=== PATIENT | male | born 1985 | race Caucasian/White ===

== ENCOUNTER 2017-07-03 09:54 | Inpatient (IN) | payer BC, MEDICAID, OTHER ==
[2017-07-03] MEDS ORDERED: LORazepam 2 MG/ML INJ IVP ONE ×3 (10:00→11:40)
--- NOTE | 2017-07-03 10:05 | CPEKG ---
Heart Rate: 147 RR Interval: 408 P-R Interval: 136 QRSD Interval: 76 QT Interval: 260 QTC Interval: 407 P Grayson: 87 QRS Grayson: 79 T Wave Grayson: -33 EKG Severity - ABNORMAL ECG - EKG Impression: SINUS TACHYCARDIA EKG Impression: NONSPECIFIC T ABNORMALITIES, INFERIOR LEADS Electronically Signed By: Sara Espitia 03-Jul-2017 16:25:10
[2017-07-03] MEDS ORDERED: NS 1,000 ML IV ONE ×3 (10:19→13:02)
[2017-07-03 10:22] LABS: % IMMATURE GRANULYOCYTES 0.4 % (0.0-1.1); ABSOLUTE IMMATURE GRANULOCYTES 0.04 10^3/uL (0.00-0.10); ADD DIFF? NO; ADD MORPH? NO; ADD SCAN? NO; ATYPICAL LYMPHOCYTE FLAG 20 (0-99); FRAGMENT RBC FLAG 0 (0-99); HEMATOCRIT 46.4 % (40.0-51.0); HEMOGLOBIN 15.9 g/dL (13.7-17.5); LEFT SHIFT FLG 0 (0-99); LIPEMIA HEMOLYSIS FLAG 90 (0-99); MEAN CELL HEMOGLOBIN 36.1 pg (27.9-34.1); MEAN CELL HEMOGLOBIN CONCENTR. 34.3 g/dL (32.4-36.7); MEAN CELL VOLUME 105.2 fL (81.5-99.8); MEAN PLATELET VOLUME 11.5 fL (8.7-11.7); PLATELET CLUMPS FLAG 20 (0-99); PLATELET COUNT 106 10^3/uL (150-400); RED BLOOD CELL COUNT 4.41 10^6/uL (4.40-6.38); RED CELL DISTRIBUTION WIDTH 11.8 % (11.5-15.2)
[2017-07-03 10:43] LABS: ANION GAP 35 mEq/L (8-16); CALCIUM 11.8 mg/dL (8.5-10.4); CARBON DIOXIDE 12 mEq/l (22-31); CHLORIDE 95 mEq/L (97-110); CREATININE 1.2 mg/dL (0.7-1.3); ETHANOL SERUM < 10 mg/dL (0-10); GLOMERULAR FILTRATION RATE > 60; GLUCOSE 143 mg/dL (70-100); POTASSIUM 3.2 mEq/L (3.5-5.2); SODIUM 142 mEq/L (134-144)
[2017-07-03] MEDS ORDERED: OLANZapine 10 MG TAB PO ONE ×2 (10:44→11:33)
[2017-07-03] MEDS ORDERED: OLANZapine DISINTEGR 10 MG TAB ONE (11:07)
[2017-07-03] MEDS ORDERED: POTASSIUM CL 20 MEQ TAB PO ONE (11:33)
[2017-07-03] MEDS ORDERED: OLANZapine DISINTEGR 10 MG TAB PO ONE (11:38)
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
[2017-07-03] MEDS ORDERED: MAGNESIUM OXIDE 400 MG TAB PO ONE (11:54)
[2017-07-03] MEDS ORDERED: ONDANSETRON 4 MG/2 ML VIAL IVP PRN (12:29)
[2017-07-03] MEDS ORDERED: ONDANSETRON DISINTEGRATING 4 MG TAB PO PRN (12:29)
[2017-07-03] MEDS ORDERED: ACETAMINOPHEN 325 MG TAB PO PRN (12:29)
[2017-07-03 13:00] LABS: ANION GAP 20 mEq/L (8-16); CALCIUM 9.8 mg/dL (8.5-10.4); CARBON DIOXIDE 19 mEq/l (22-31); CHLORIDE 103 mEq/L (97-110); CREATININE 0.8 mg/dL (0.7-1.3); GLOMERULAR FILTRATION RATE > 60; GLUCOSE 76 mg/dL (70-100); POTASSIUM 3.1 mEq/L (3.5-5.2); SODIUM 142 mEq/L (134-144)
[2017-07-03 13:24] LABS: COLOR RED; LEUKOCYTE ESTERASE,URINE NEGATIVE (NEGATIVE); NITRITE,URINE NEGATIVE (NEGATIVE)
[2017-07-03 13:26] LABS: HYALINE CASTS >182 /lpf (0-1); MUCUS 4+ /lpf (NONE-1+)
[2017-07-03] MEDS: DEXMEDETOMIDINE HCL 400 MCG in NS 100 ML IV SCH (13:42)
[2017-07-03] MEDS: NS 1,000 ML IV SCH ×2 (13:46→23:38)
[2017-07-03] MEDS: LORazepam 2 MG/ML INJ IVP PRN (13:52)
[2017-07-03 13:53] LABS: ALANINE AMINOTRANSFERASE 173 IU/L (21-72); ALBUMIN 5.8 g/dL (3.5-5.0); ALKALINE PHOSPHATASE 132 IU/L (38-126); ASPARTATE AMINOTRANSFERASE 334 IU/L (17-59); BILIRUBIN,TOTAL 5.4 mg/dL (0.1-1.4); BILIRUBIN-CONJUGATED 2.8 mg/dL (0.0-0.5); BILIRUBIN-UNCONJUGATED 2.6 mg/dL (0.0-1.1); SALICYLATE < 1.0 mg/dL (2.0-20.0); TOTAL PROTEIN 9.3 g/dL (6.3-8.2)
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
[2017-07-03] MEDS ORDERED: PROTOCOL POTASSIUM 1 DOSE MISC PRN (14:42)
[2017-07-03] MEDS ORDERED: PROTOCOL K PHOSPHATE 1 DOSE IV PRN (14:42)
[2017-07-03 18:36] LABS: POTASSIUM 3.5 mEq/L (3.5-5.2)
[2017-07-03 18:44] LABS: METHANOL NEGATIVE (NEGATIVE); PROPYLENE GLYCOL NOT DETECTED (NODETECT)
[2017-07-03] MEDS ORDERED: POTASSIUM CL 10 MEQ TAB PO ONE (22:44)
[2017-07-04] MEDS: LORazepam 2 MG/ML INJ IVP PRN ×3 (00:18→18:50)
[2017-07-04] MEDS ORDERED: D50W 25 GM/50 ML SYR IVP ONE (01:00)
[2017-07-04] MEDS: DEXMEDETOMIDINE HCL 400 MCG in NS 100 ML IV SCH (05:03)
[2017-07-04 05:29] LABS: % IMMATURE GRANULYOCYTES 0.2 % (0.0-1.1); ABSOLUTE IMMATURE GRANULOCYTES 0.01 10^3/uL (0.00-0.10); ADD DIFF? NO; ADD MORPH? NO; ADD SCAN? NO; ATYPICAL LYMPHOCYTE FLAG 20 (0-99); FRAGMENT RBC FLAG 0 (0-99); HEMOGLOBIN 10.5 g/dL (13.7-17.5); LEFT SHIFT FLG 0 (0-99); LIPEMIA HEMOLYSIS FLAG 80 (0-99); MEAN CELL HEMOGLOBIN 35.8 pg (27.9-34.1); MEAN CELL HEMOGLOBIN CONCENTR. 32.8 g/dL (32.4-36.7); MEAN CELL VOLUME 109.2 fL (81.5-99.8); MEAN PLATELET VOLUME 11.1 fL (8.7-11.7); PLATELET CLUMPS FLAG 0 (0-99); PLATELET COUNT 74 10^3/uL (150-400); RED BLOOD CELL COUNT 2.93 10^6/uL (4.40-6.38); RED CELL DISTRIBUTION WIDTH 11.9 % (11.5-15.2)
[2017-07-04 05:40] LABS: ANION GAP 12 mEq/L (8-16); CALCIUM 8.7 mg/dL (8.5-10.4); CARBON DIOXIDE 22 mEq/l (22-31); CHLORIDE 108 mEq/L (97-110); CREATININE 0.5 mg/dL (0.7-1.3); GLOMERULAR FILTRATION RATE > 60; GLUCOSE 92 mg/dL (70-100); MAGNESIUM 1.3 mg/dL (1.6-2.3); POTASSIUM 3.2 mEq/L (3.5-5.2); SODIUM 142 mEq/L (134-144)
[2017-07-04] MEDS ORDERED: PROTOCOL MAGNESIUM 1 DOSE IV PRN (06:11)
[2017-07-04] MEDS ORDERED: POTASSIUM CL 10 MEQ TAB PO ONE ×3 (06:40→20:01)
[2017-07-04] MEDS ORDERED: MAGNESIUM SULF 2 GM/WATER 50 ML IV ONE (06:46)
[2017-07-04] MEDS: ENOXAPARIN 40 MG/0.4 ML SYR SC SCH (07:50)
[2017-07-04 08:50] LABS: ALBUMIN 3.2 g/dL (3.5-5.0); BILIRUBIN,TOTAL 2.9 mg/dL (0.1-1.4); BILIRUBIN-CONJUGATED 1.4 mg/dL (0.0-0.5); BILIRUBIN-UNCONJUGATED 1.5 mg/dL (0.0-1.1); TOTAL PROTEIN 5.4 g/dL (6.3-8.2)
[2017-07-04] MEDS: THIAMINE HCL 500 MG in NS 100 ML IV SCH (09:06)
[2017-07-04] MEDS: NS 1,000 ML IV SCH (09:46)
--- NOTE | 2017-07-04 11:08 | HOSPPROG ---
Hospitalist Progress Note Assessment/Plan: # acute alcohol withdrawal- patient with heart rates in the 180s and tremulous at presentation actively hallucinating Markedly improved with Precedex overnight- now reports 5+ drinks per day Mentation markedly improved this morning - A&Ox3 - telemetry (personally reviewed and interpreted) sinus in the 80s Oxygen saturations 95% on room air - wean Precedex drip off - start scheduled Librium - Ativan p.r.n. # acute severe anion gap metabolic acidosis- suspected secondary to alcohol and starvation AG 35 at presentation-> 12 with fluids overnight- alcohols all negative at presentation - continue IV fluid resuscitation until p.o. normal - monitor daily # acute hallucination- baseline psychiatric history unclear patient appears to be clearing the treatment of alcohol - supportive care - treat alcohol withdrawal # hypokalemia, hypophosphatemia, hypomagnesemia- presumed secondary to poor p.o. intake - continue protocol repletion # macrocytosis - suspect 2/2 Etoh marrow suppression # thrombocytopenia - suspect 2/2 Etoh marrow suppression 106->74 - monitor daily # proph - lovenox # diet - regualr # dispo - > 2MN as requiring ongoing treatment of alcohol withdrawal I have discussed the case with Dr. Dickson- Will wean Precedex today and schedule Librium Subjective: Denies chest or abdominal pain Objective: Vital Signs Temp Pulse Resp BP Pulse Ox 37 C 64 12 81/52 L 98 07/04/17 08:00 07/04/17 09:41 07/04/17 09:41 07/04/17 09:41 07/04/17 09:41 Laboratory Results 07/04/17 05:12 07/04/17 05:12 07/03/17 07/04/17 07/05/17 05:59 05:59 05:59 Intake Total 5417.5 480 Output Total 825 Balance 4592.5 480 - Physical Exam Constitutional: appears nourished Eyes: anicteric sclera Ears, Nose, Mouth, Throat: dry mucous membranes Cardiovascular: regular rate and rhythym Respiratory: no respiratory distress, no rales or rhonchi Gastrointestinal: normoactive bowel sounds, soft, non-tender abdomen Genitourinary: no bladder fullness Skin: warm Musculoskeletal: No asymmetric calves Neurologic: AAOx3, other (Tremor) Psychiatric: interacting appropriately, poor insight, poor memory Lymph, Heme, Immunologic: no cervical LAD ICD10 Worksheet Patient Problems: Problems Problem Status Onset Encephalitis Acute
[2017-07-04 17:42] LABS: POTASSIUM 3.2 mEq/L (3.5-5.2)
[2017-07-04] MEDS ORDERED: LORazepam 2 MG/ML INJ IV ONE (20:30)
[2017-07-05] MEDS: DEXMEDETOMIDINE HCL 400 MCG in NS 100 ML IV SCH ×2 (00:05→06:36)
[2017-07-05 06:39] LABS: % IMMATURE GRANULYOCYTES 0.5 % (0.0-1.1); ABSOLUTE IMMATURE GRANULOCYTES 0.02 10^3/uL (0.00-0.10); ADD DIFF? NO; ADD MORPH? NO; ADD SCAN? NO; ATYPICAL LYMPHOCYTE FLAG 30 (0-99); FRAGMENT RBC FLAG 0 (0-99); HEMATOCRIT 33.3 % (40.0-51.0); HEMOGLOBIN 11.1 g/dL (13.7-17.5); LEFT SHIFT FLG 0 (0-99); LIPEMIA HEMOLYSIS FLAG 80 (0-99); MEAN CELL HEMOGLOBIN 36.6 pg (27.9-34.1); MEAN CELL HEMOGLOBIN CONCENTR. 33.3 g/dL (32.4-36.7); MEAN CELL VOLUME 109.9 fL (81.5-99.8); MEAN PLATELET VOLUME 11.3 fL (8.7-11.7); PLATELET CLUMPS FLAG 0 (0-99); PLATELET COUNT 105 10^3/uL (150-400); RED BLOOD CELL COUNT 3.03 10^6/uL (4.40-6.38)
[2017-07-05 06:51] LABS: ANION GAP 9 mEq/L (8-16); CALCIUM 8.9 mg/dL (8.5-10.4); CARBON DIOXIDE 24 mEq/l (22-31); CHLORIDE 110 mEq/L (97-110); CREATININE 0.5 mg/dL (0.7-1.3); GLOMERULAR FILTRATION RATE > 60; GLUCOSE 108 mg/dL (70-100); MAGNESIUM 1.5 mg/dL (1.6-2.3); POTASSIUM 3.6 mEq/L (3.5-5.2); SODIUM 143 mEq/L (134-144)
[2017-07-05] MEDS ORDERED: POTASSIUM CL 10 MEQ TAB PO ONE ×2 (08:42→22:31)
[2017-07-05] MEDS ORDERED: MAGNESIUM SULF 1 GM/DEXTROSE 100 ML IV ONE (08:42)
[2017-07-05] MEDS: LORazepam 1 MG TAB PO PRN (08:54)
[2017-07-05] MEDS: THIAMINE HCL 500 MG in NS 100 ML IV SCH (08:55)
[2017-07-05] MEDS: ENOXAPARIN 40 MG/0.4 ML SYR SC SCH (08:55)
[2017-07-05] MEDS: LORazepam 2 MG/ML INJ IVP PRN ×4 (11:06→19:16)
--- NOTE | 2017-07-05 14:36 | HOSPPROG ---
Hospitalist Progress Note Assessment/Plan: # acute alcohol withdrawal- patient with heart rates in the 180s and tremulous at presentation actively hallucinating Markedly improved with Precedex overnight- now reports 5+ drinks per day Mentation markedly improved this morning - A&Ox3 - telemetry (personally reviewed and interpreted) sinus in the 80s Oxygen saturations 95% on room air - wean Precedex drip off - start scheduled Librium - Ativan p.r.n. # acute severe anion gap metabolic acidosis- suspected secondary to alcohol and starvation AG 35 at presentation-> 12 with fluids overnight- alcohols all negative at presentation - continue IV fluid resuscitation until p.o. normal - monitor daily # acute hallucination- baseline psychiatric history unclear patient appears to be clearing the treatment of alcohol - supportive care - treat alcohol withdrawal # hypokalemia, hypophosphatemia, hypomagnesemia- presumed secondary to poor p.o. intake - continue protocol repletion # macrocytosis - suspect 2/2 Etoh marrow suppression # thrombocytopenia - suspect 2/2 Etoh marrow suppression 106->74 - monitor daily # proph - lovenox # diet - regualr # dispo - > 2MN as requiring ongoing treatment of alcohol withdrawal I have discussed the case with Dr. Dickson- Will wean Precedex today and schedule Librium Objective: Vital Signs Temp Pulse Resp BP Pulse Ox 36.8 C 69 14 121/74 H 97 07/05/17 08:27 07/05/17 12:14 07/05/17 12:14 07/05/17 12:14 07/05/17 12:14 Laboratory Results 07/05/17 06:28 07/05/17 06:28 07/04/17 07/05/17 07/06/17 05:59 05:59 05:59 Intake Total 5417.5 4670 1020 Output Total 825 350 Balance 4592.5 4320 1020 ICD10 Worksheet Patient Problems: Problems Problem Status Onset Encephalitis Acute
--- NOTE | 2017-07-05 15:13 | HOSPPROG ---
Hospitalist Progress Note Assessment/Plan: # acute alcohol withdrawal- patient with heart rates in the 180s and tremulous at presentation actively hallucinating Markedly improved with Precedex over the first night - then evening decompensation requiring re-initiation of precedex Mentation improved again this morning - A&Ox3 - telemetry (personally reviewed and interpreted) sinus in the 80s Oxygen saturations 95% on room air - wean Precedex drip off again this am - increase scheduled Librium to 25mg TID - Ativan p.r.n. - encourage PO and ambulation # acute severe anion gap metabolic acidosis- suspected secondary to alcohol and starvation AG 35 at presentation-> 12 with fluids - alcohols all negative at presentation - continue IV fluid resuscitation until p.o. normal - monitor daily # acute hallucination- baseline psychiatric history unclear patient appears to be clearing the treatment of alcohol - supportive care - treat alcohol withdrawal # hypokalemia, hypophosphatemia, hypomagnesemia- presumed secondary to poor p.o. intake - continue protocol repletion # macrocytosis - suspect 2/2 Etoh marrow suppression- B12 and folate pending H&H stable after fluid resuscitation # thrombocytopenia - suspect 2/2 Etoh marrow suppression stable at 105 - monitor daily # proph - lovenox # diet - regular # dispo - > 2MN as requiring ongoing treatment of alcohol withdrawal I have discussed the case with RN- we will orient patient with walks today in hopes of keeping off Precedex Subjective: denies chest or abd pain Objective: Vital Signs Temp Pulse Resp BP Pulse Ox 36.8 C 69 14 121/74 H 97 07/05/17 08:27 07/05/17 12:14 07/05/17 12:14 07/05/17 12:14 07/05/17 12:14 Laboratory Results 07/05/17 06:28 07/05/17 06:28 07/04/17 07/05/17 07/06/17 05:59 05:59 05:59 Intake Total 5417.5 4670 1020 Output Total 825 350 Balance 4592.5 4320 1020 - Physical Exam Constitutional: unkempt Eyes: anicteric sclera Ears, Nose, Mouth, Throat: moist mucous membranes Cardiovascular: regular rate and rhythym Respiratory: no respiratory distress Gastrointestinal: normoactive bowel sounds, soft, non-tender abdomen Genitourinary: no bladder fullness Skin: warm, normal color Musculoskeletal: No asymmetric calves Neurologic: AAOx3, other (no tremor) Psychiatric: flat affect Lymph, Heme, Immunologic: no cervical LAD ICD10 Worksheet Patient Problems: Problems Problem Status Onset Encephalitis Acute
[2017-07-05] MEDS: chlordiazePOXIDE 25 MG CAP PO SCH ×2 (16:08→21:21)
[2017-07-05] MEDS: FOLIC ACID 1 MG TAB PO SCH (16:10)
[2017-07-05 16:11] LABS: FOLATE SERUM 6.55 ng/mL (2.80 - >20.00)
[2017-07-05] MEDS: MULTIVITAMINS W-MINERALS 1 EACH TAB PO SCH (16:11)
--- NOTE | 2017-07-05 16:51 | GCON ---
[f rep st] CONSULTATION PULMONARY CRITICAL CARE CONSULTATION DATE OF CONSULTATION: 07/05/2017 REASON FOR CONSULTATION: Abnormal mental status, alcohol withdrawal. HISTORY: The patient is a 31-year-old gentleman who drinks a number of beers and 3 drinks of alcohol per day by his history. He was found in a parking lot on the day of admission, hallucinating, with bizarre behavior. He was brought to the emergency department and admitted. CT scan of the head was within normal limits. He was found to have a severe anion gap metabolic acidosis. The anion gap was 35. Creatinine was 1.2, serum bicarbonate 12. He was also hypokalemic. Blood alcohol was negative. Urine toxicology screen was positive only for marijuana. MCV was significantly elevated. Ethylene glycol and methanol levels were sent and came back negative. Following admission, he had signs and symptoms of alcohol withdrawal with sinus tachycardia, tremulousness, confusion and hallucinations. He recalls significant nausea in the several days prior to admission and thinks that he did not eat for about 3 days. He notes tremulousness and weakness and difficulty ambulating. He apparently fell and has some excoriations related to his knees. He may have a history of either schizophrenia or possible bipolar disorder. SOCIAL HISTORY: The patient drinks alcohol daily as outlined above. 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 Tobacco is negative. He obviously uses marijuana. FAMILY HISTORY: Noncontributory/negative. REVIEW OF SYSTEMS: Negative except as noted above. There is no history of heart disease or lung disease. He does describe tremor, recent anorexia, etc. He denies drug use recently. There is no history of thromboembolic disease, known liver disease, etc. PHYSICAL EXAMINATION: GENERAL: Physical examination reveals a young man who is fairly thin. VITAL SIGNS: Blood pressure is 120/74, heart rate 75 and regular, with sinus rhythm on the monitor. Respiratory rate is 16. On room air , saturations are 97%. He is afebrile. HEENT: Remarkable for somewhat dry mucous membranes. There is no jugular venous distention, lymphadenopathy, or thyromegaly. Pupils are equal. There is no conjunctival injection. CHEST: Clear bilaterally. Excursions are within normal limits. HEART: Regular in rate and rhythm. There are no significant murmurs, no gallops. ABDOMEN: Soft and nontender. Organomegaly cannot be appreciated. There is no significant tenderness. NEUROLOGIC: Nonfocal. He does have a fine tremor. On standing, he is quite weak and tremulous. It appears that ambulation is compromised currently. He is oriented to person and place, date is off but he knows it is June 2017. He recalls watching the eclipse a bit ago. He remains slightly confused with some inappropriate and rapid answers to questions. SKIN: Remarkable for some excoriations, primarily over the knees. A Depends is in place. DATABASE: Radiologic studies are as listed above. Chest x-ray was normal on admission. Current laboratory shows a sodium of 143, potassium 3.6, CO2 24, BUN 4 with a creatinine of 0.5. Magnesium is 1.5, phosphorus 3.4, calcium 8.9. Total bilirubin is 2.9. AST is elevated at 162, ALT at 108. Albumin is 3.2. Urinalysis on admission was remarkable for concentrated urine. A few white blood cells were seen. No urine culture was obtained. Toxicology screen is all negative except for THC. Salicylates were negative on admission. Methanol and ethylene glycol were all negative. White blood cell count is 4300, hematocrit 33, MCV 110. Platelets are 105,000, up from 74 yesterday. ASSESSMENT: 1. Altered mental status. This appears to be related only to alcohol withdrawal. He denies other ingestions. However, he does have a history of underlying depressive disease in the past and this may be contributing to his drinking by size self treatment? He is currently improving. 2. Alcohol withdrawal. It does appear he is withdrawing significantly from alcohol. He has required Precedex but this is off currently. He is on scheduled Librium and p.r.n. Ativan. With therapies, he is improving. He is currently calm, relatively appropriate,and confusion seems to be resolving. The CIWA protocol will be continued. Thiamine, multivitamins, etc., will all be continued. 3. Volume depletion. Resolved with intravenous fluids. 4. Metabolic acidosis. Probably an alcoholic ketoacidosis. Volume depletion may have been playing a role as well. This has resolved. 5. Metabolic: He is on electrolyte replacement protocols. 6. Deep venous thrombosis prophylaxis: On enoxaparin. 7. Nutrition: Starting to take p.o.'s. PLAN/RECOMMENDATIONS: The patient will be kept in the intensive care unit. Intravenous fluids will be continued. The CIWA protocol will be continued. Precedex will be held unless he again escalates. It will then be restarted at the lowest dose as possible. Thiamine will be continued. Folate and multivitamins will be given. B12 and folate levels will be checked. Laboratory will be followed. Electrolytes will be given per replacement protocols. Psychiatric consultation prior to discharge needs to be considered. Further plans and recommendations will be made based on the patient's progress over the next 12 to 24 hours. /[id number]/MODL MTDD
[2017-07-05 18:40] LABS: POTASSIUM 3.8 mEq/L (3.5-5.2)
[2017-07-06] MEDS: LORazepam 2 MG/ML INJ IVP PRN ×4 (00:14→14:49)
[2017-07-06] MEDS ORDERED: IBUPROFEN 200 MG TAB PO ONE (01:27)
[2017-07-06] MEDS: DEXMEDETOMIDINE HCL 400 MCG in NS 100 ML IV SCH (01:38)
[2017-07-06 05:12] LABS: % IMMATURE GRANULYOCYTES 0.7 % (0.0-1.1); ABSOLUTE IMMATURE GRANULOCYTES 0.03 10^3/uL (0.00-0.10); ADD DIFF? NO; ADD MORPH? NO; ADD SCAN? NO; ATYPICAL LYMPHOCYTE FLAG 50 (0-99); FRAGMENT RBC FLAG 0 (0-99); HEMATOCRIT 34.4 % (40.0-51.0); HEMOGLOBIN 11.6 g/dL (13.7-17.5); LEFT SHIFT FLG 10 (0-99); LIPEMIA HEMOLYSIS FLAG 80 (0-99); MEAN CELL HEMOGLOBIN 36.4 pg (27.9-34.1); MEAN CELL HEMOGLOBIN CONCENTR. 33.7 g/dL (32.4-36.7); MEAN CELL VOLUME 107.8 fL (81.5-99.8); MEAN PLATELET VOLUME 10.9 fL (8.7-11.7); PLATELET CLUMPS FLAG 10 (0-99); PLATELET COUNT 144 10^3/uL (150-400); RED BLOOD CELL COUNT 3.19 10^6/uL (4.40-6.38); RED CELL DISTRIBUTION WIDTH 11.7 % (11.5-15.2)
[2017-07-06 05:26] LABS: ANION GAP 11 mEq/L (8-16); CALCIUM 9.5 mg/dL (8.5-10.4); CARBON DIOXIDE 26 mEq/l (22-31); CHLORIDE 103 mEq/L (97-110); CREATININE 0.5 mg/dL (0.7-1.3); GLOMERULAR FILTRATION RATE > 60; GLUCOSE 104 mg/dL (70-100); MAGNESIUM 1.6 mg/dL (1.6-2.3); POTASSIUM 3.4 mEq/L (3.5-5.2); SODIUM 140 mEq/L (134-144)
[2017-07-06] MEDS ORDERED: POTASSIUM CL 10 MEQ TAB PO ONE ×2 (06:30→21:41)
[2017-07-06] MEDS: chlordiazePOXIDE 25 MG CAP PO SCH ×3 (10:30→20:22)
[2017-07-06] MEDS: FOLIC ACID 1 MG TAB PO SCH (10:30)
[2017-07-06] MEDS: MULTIVITAMINS W-MINERALS 1 EACH TAB PO SCH (10:31)
[2017-07-06] MEDS: ENOXAPARIN 40 MG/0.4 ML SYR SC SCH (10:31)
[2017-07-06] MEDS: LORazepam 1 MG TAB PO PRN ×2 (11:30→20:42)
--- NOTE | 2017-07-06 12:36 | PDINTPN ---
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 On the CIWA protocol. On Precedex overnight. Apparently was more confused. On Ativan prn and Librium scheduled. AMS - Improving. Chronic alcohol abuse. Metabolic acidosis, probably alcoholic ketoacidosis. Resolved. Metabolic - On replacement protocols DVT - on enoxaparin Underlying psychiatric diagnosis? He reports depression in college Plan: Continue care in the intensive care unit this morning. Continue CIWA protocol, Thiamin, multivits. Possibly can transfer to a medical-surgical bed. Will get PT and OT involved. Increase activity as tolerated. Follow electrolytes. Began to work on disposition. Psychiatric evaluation needs to occur prior to discharge. 25 minutes of critical care time spent directly with the patient. Discussed issues of depression with patient, his alcohol withdrawal diagnosis, discussed with nursing, hospitalist, and the ICU multi disciplinary team. Subjective: oriented to person. Thinks he is in christianity. Unclear of the date. Denies pain or shortness of breath. Less shaky. Objective: Vital Signs Temp Pulse Resp BP Pulse Ox 37.0 C 66 15 104/61 97 07/06/17 08:00 07/06/17 08:00 07/06/17 08:00 07/06/17 08:00 07/06/17 08:00 Laboratory Results 07/06/17 04:53 07/06/17 04:53 07/05/17 07/06/17 07/07/17 05:59 05:59 05:59 Intake Total 4670 2378.5 Output Total 350 650 Balance 4320 2378.5 -650 Laboratory Tests 07/05/17 07/06/17 06:28 04:53 Calcium 9.5 Phosphorus 4.0 Magnesium 1.6 Vitamin B12 > 1000 H Folate 6.55 Physical Exam - Physical Exam General Appearance: thin, other ( Lethargic, arouses, responds) EENT: PERRL/EOMI, other ( on room air) Neck: normal inspection ( no JVD) Respiratory: lungs clear, normal breath sounds Cardiac/Chest: regular rate, rhythm ( tachycardic at times) Abdomen: normal bowel sounds, non-tender, soft Male Genitalia: other ( no Quiroga catheter) Skin: normal color, warm/dry Lymphatic: no adenopathy Extremities: No pedal edema Neuro/Psych: no motor/sensory deficits, cognition abnormalities ( remains confused at times. Tremor decreased. Ambulating without significant assistance ) ICD10 Worksheet Patient Problems: Problems Problem Status Onset Encephalitis Acute Altered mental status Acute Metabolic acidosis Acute
--- NOTE | 2017-07-06 15:57 | HOSPPROG ---
Hospitalist Progress Note Assessment/Plan: # acute alcohol withdrawal- patient with heart rates in the 180s and tremulous at presentation actively hallucinating Markedly improved off Precedex over night Mentation improved again this morning - A&Ox3 - telemetry (personally reviewed and interpreted) sinus in the 80s Oxygen saturations 95% on room air -off Precedex drip - cont scheduled Librium to 25mg TID - Ativan p.r.n. - encourage PO and ambulation # acute severe anion gap metabolic acidosis- suspected secondary to alcohol and starvation AG 35 at presentation-> 11 with fluids - alcohols all negative at presentation - dc IV fluid as p.o. normal - monitor daily # acute hallucination- baseline psychiatric history unclear patient appears to be clearing the treatment of alcohol - supportive care - treat alcohol withdrawal # hypokalemia, hypophosphatemia, hypomagnesemia- presumed secondary to poor p.o. intake - continue protocol repletion # macrocytosis - suspect 2/2 Etoh marrow suppression- B12 and folate normal H&H stable after fluid resuscitation # thrombocytopenia - suspect 2/2 Etoh marrow suppression stable at 144 - monitor daily # proph - lovenox # diet - regular # dispo - > 2MN as requiring ongoing treatment of alcohol withdrawal I have discussed the case with RN- we will transfer patient to medical-surgical floor for ongoing supportive care Subjective: Denies pain feels better Objective: Vital Signs Temp Pulse Resp BP Pulse Ox 37.0 C 66 15 104/61 97 07/06/17 08:00 07/06/17 08:00 07/06/17 08:00 07/06/17 08:00 07/06/17 08:00 Laboratory Results 07/06/17 04:53 07/06/17 04:53 07/05/17 07/06/17 07/07/17 05:59 05:59 05:59 Intake Total 4670 2378.5 Output Total 350 650 Balance 4320 2378.5 -650 - Physical Exam Constitutional: appears nourished Eyes: anicteric sclera Ears, Nose, Mouth, Throat: moist mucous membranes Cardiovascular: regular rate and rhythym Respiratory: no respiratory distress, no rales or rhonchi Gastrointestinal: normoactive bowel sounds Genitourinary: no bladder fullness Skin: warm Musculoskeletal: No asymmetric calves Neurologic: AAOx3, other (Tremor reduced) Psychiatric: interacting appropriately, depressed, flat affect Lymph, Heme, Immunologic: no cervical LAD ICD10 Worksheet Patient Problems: Problems Problem Status Onset Altered mental status Acute Encephalitis Acute Metabolic acidosis Acute
[2017-07-06 21:12] LABS: POTASSIUM 3.7 mEq/L (3.5-5.2)
[2017-07-07] MEDS: LORazepam 1 MG TAB PO PRN ×2 (01:12→09:42)
[2017-07-07 05:11] LABS: HEMATOCRIT 38.7 % (40.0-51.0); MEAN CELL HEMOGLOBIN 36.3 pg (27.9-34.1); MEAN CELL HEMOGLOBIN CONCENTR. 33.6 g/dL (32.4-36.7); MEAN CELL VOLUME 108.1 fL (81.5-99.8); RED BLOOD CELL COUNT 3.58 10^6/uL (4.40-6.38); RED CELL DISTRIBUTION WIDTH 11.8 % (11.5-15.2)
[2017-07-07 05:27] LABS: ANION GAP 11 mEq/L (8-16); CALCIUM 10.4 mg/dL (8.5-10.4); CARBON DIOXIDE 25 mEq/l (22-31); CHLORIDE 101 mEq/L (97-110); CREATININE 0.5 mg/dL (0.7-1.3); GLOMERULAR FILTRATION RATE > 60; GLUCOSE 104 mg/dL (70-100); MAGNESIUM 1.7 mg/dL (1.6-2.3); POTASSIUM 3.9 mEq/L (3.5-5.2); SODIUM 137 mEq/L (134-144)
[2017-07-07] MEDS: chlordiazePOXIDE 25 MG CAP PO SCH ×3 (09:34→22:01)
[2017-07-07] MEDS: MULTIVITAMINS W-MINERALS 1 EACH TAB PO SCH (09:34)
[2017-07-07] MEDS: THIAMINE HCL 100 MG TAB PO SCH (09:34)
[2017-07-07] MEDS: ENOXAPARIN 40 MG/0.4 ML SYR SC SCH (09:34)
[2017-07-07] MEDS: FOLIC ACID 1 MG TAB PO SCH (09:34)
[2017-07-07] MEDS ORDERED: POTASSIUM CL 10 MEQ TAB PO ONE ×2 (10:53→22:05)
--- NOTE | 2017-07-07 11:27 | HOSPPROG ---
Hospitalist Progress Note Assessment/Plan: Patient is a 31-year-old male with a history of alcohol abuse and a mental disorder who presented by ambulance when bystanders in a parking lot noticed unusual behavior. Today is my 1st encounter with the patient. Chart reviewed. * Acute alcohol withdrawal was treated with Precedex and p.r.n. Ativan on scheduled Librium 25 mg three times daily CIWA this morning was 15 slightly tremulous during my evaluation * sinus tachycardia due to the above * acute anion gap metabolic acidosis secondary from being dehydrated/resolved *elevated LFT's/likely alcoholic hepatitis recommended he stop drinking all together * electrolyte abnormality being treated with protocols * macrocytosis due to alcohol use * thrombocytopenia due to alcohol use * hallucinations none today/suspect it was from alcohol withdrawal * suspect bipolar versus schizophrenia after talking with the patient, he has been dx w depression asked Betzaida Chan with psychiatry to see *unemployment he gets money from his parents *Plan: Betzaida Chan to see, have asked CM to give him any resources for OP care/ he is willing to go to IP for alcohol abuse if that were a possibility. He is not ready for dc / he is still withdrawing during my evaluation. Subjective: Eric wants to go home with his girlfriend. He said he is willing to stay. Objective: Vital Signs Temp Pulse Resp BP Pulse Ox 36.6 C 87 14 110/74 96 07/07/17 08:00 07/07/17 08:00 07/07/17 08:00 07/07/17 08:00 07/07/17 08:00 Laboratory Results 07/07/17 04:43 07/07/17 04:43 07/06/17 07/07/17 07/08/17 05:59 05:59 05:59 Intake Total 2378.5 1200 Output Total 1128 Balance 2378.5 72 - Physical Exam Constitutional: other (thin) Eyes: PERRL Ears, Nose, Mouth, Throat: hearing normal Cardiovascular: regular rate and rhythym, tachycardia Respiratory: no respiratory distress Gastrointestinal: normoactive bowel sounds Skin: other (scabs on left slater area) Musculoskeletal: generalized weakness Neurologic: AAOx3 Psychiatric: anxious ICD10 Worksheet Patient Problems: Problems Problem Status Onset Altered mental status Acute Encephalitis Acute Metabolic acidosis Acute
[2017-07-07 19:50] LABS: POTASSIUM 3.5 mEq/L (3.5-5.2)
[2017-07-08 05:31] VITALS: TEMP 98.4
[2017-07-08] MEDS: FOLIC ACID 1 MG TAB PO SCH (09:11)
[2017-07-08] MEDS: chlordiazePOXIDE 25 MG CAP PO SCH ×2 (09:11→16:50)
[2017-07-08] MEDS: THIAMINE HCL 100 MG TAB PO SCH (09:11)
[2017-07-08] MEDS: MULTIVITAMINS W-MINERALS 1 EACH TAB PO SCH (09:11)
[2017-07-08] MEDS: ENOXAPARIN 40 MG/0.4 ML SYR SC SCH (09:12)
[2017-07-08] MEDS ORDERED: POTASSIUM CL 10 MEQ TAB PO ONE (09:40)
[2017-07-08 10:21] LABS: MAGNESIUM 1.6 mg/dL (1.6-2.3); POTASSIUM 3.7 mEq/L (3.5-5.2)
[2017-07-08] MEDS ORDERED: MAGNESIUM SULF 1 GM/DEXTROSE 100 ML IV ONE (12:59)
[2017-07-08 16:00] VITALS: BP 115/80; PULSE 100; RESP 16; O2SAT 98
--- NOTE | 2017-07-09 04:22 | GDS ---
[f rep st] DISCHARGE SUMMARY SERVICE: [facility] hospitalist. CONSULTATIONS: Pulmonology, Dr. Oral Gaitan. PROCEDURES: Chest x-ray, head CT, EKG. HISTORY AND PHYSICAL: Please see previously dictated note by Dr. Negrete. ADMISSION DIAGNOSES: 1. Severe anion gap metabolic acidosis. 2. Sinus tachycardia. 3. Auditory and visual hallucinations. 4. Hypercalcemia. 5. Macrocytosis consistent with alcohol abuse. 6. Acute thrombocytopenia. 7. Acute alcohol withdrawal. DISCHARGE DIAGNOSES: 1. Severe anion gap metabolic acidosis, resolved. 2. Sinus tachycardia. 3. Auditory and visual hallucinations, resolved. 4. Hypercalcemia, resolved. 5. Macrocytosis consistent with alcohol abuse. 6. Acute thrombocytopenia. 7. Acute alcohol withdrawal, resolved. HOSPITAL COURSE BY PROBLEM LIST: 1. Acute alcohol withdrawal. Patient was brought in today emergency department after being found in a parking lot acting peculiar. He was brought in by ambulance into the ER where he was urgently treated with antipsychotic medications and benzodiazepines. He was admitted to the intensive care unit and was placed on Precedex, IV vitamins, IV fluids, and close monitoring. He remained in intensive care until 07/06/2017, at which time he was transferred to the general medical floor. When his mentation cleared, he did admit to drinking greater than 5 drinks a day for a significant amount of time. On the day of discharge, his mentation had cleared significantly, his CIWA scores were markedly decreased, and he was very amenable to seeking outpatient cessation and therapy. He has been set up with an appointment at [facility] to establish care as he does not have a primary care provider. He was seen by Betzaida Chan, Behavioral health, and also Case Management. No indications for acute psychiatric illness or underlying diagnoses other than possible depression and PTSD. He had markedly elevated liver enzymes and MCV on admission, which started to decrease since he attained sobriety. I recommended that he check all laboratories again with his primary care provider when he establishes care. I have strongly encouraged him to continue with complete cessation of alcohol use, and he does seem motivated to do this along with the help of his girlfriend. Several outpatient resources for alcohol treatment by the behavioral health team have been provided to him, also. He has been on chlordiazepoxide with no p.r.n. Ativan use on the day of discharge. He was discharged home with Ativan to use p.r.n. I have encouraged him to come back to the emergency department or seek mental health treatment [facility] if has any desire to drink alcohol. If he has any shaking tremors, vomiting, fever, or other concerns, he is return to the emergency department. 2. Severe anion gap metabolic acidosis. He received significant IV fluid volume resuscitation after his initial presentation. He had frequent laboratory monitoring along with continued IV fluid replacement until his anion gap closed. He was monitored in the intensive care unit as well as also being treated with Precedex as above. Oral Gaitan, critical care mission coordinator, was asked to consult on the patient and assist with management of his acute issues while he was in the intensive care unit. 3. Sinus tachycardia. He had marked sinus tachycardia into the 160s, 170s on initial presentation to the emergency department. He received significant fluid volume resuscitation and active alcohol withdrawal treatments. The sinus tachycardia decreased but did not entirely resolve throughout his stay. He did have a TSH done, which was normal, and at time of discharge, his heart rate was in the 90s. 4. Auditory and visual hallucinations. As above, he was treated with emergent antipsychotics. He was placed on Precedex for alcohol withdrawal and given IV vitamin replacements. Throughout the course of his stay, his mentation significantly improved, and on the day of discharge, he was evaluated by Betzaida Chan [facility]. After her assessment, she did not feel that any further psychiatric evaluation was needed as an inpatient. She did think that he had PTSD and depression secondary to a traumatic personal relationship that he had previously. Local mental health and alcohol treatment resources were discussed with him as above. He has a girlfriend who was in the room throughout most of his stay. She denies any previous known auditory or visual hallucinations, and she feels safe and comfortable taking him home. 5. Hypercalcemia. Calcium on admission was 11.8 and decreased throughout his stay. On the day prior to discharge, it was within the normal range at 10.4. It was felt to be secondary to significant dehydration. 6. Macrocytosis, acute thrombocytopenia. MCV was 105 at admission, and platelet count was 106 at admission. Of note, platelets increased to 212,000 on the day prior to discharge. This is likely secondary to chronic alcohol use. See above. DISCHARGE MEDICATIONS: Ativan 1-2 mg every 4 hours as needed for alcohol withdrawal and anxiety, folic acid 1 mg once a day, multivitamin daily, thiamine 100 mg once a day. DISCHARGE INSTRUCTIONS: I have counseled him at length regarding alcohol use and treatment in general. I have strongly encouraged him to maintain complete abstinence from alcohol. Multiple resources have been given to him as described above. He has an established care point with [facility] next week. He has been reminded to return to the emergency department [facility] if he has any seizure, fever, worsening tremulousness, significant anxiety, or any other concerns. Recommend a repeat CBC and CMP at follow-up appointment. /[id number]/MODL and [id number], 07/08/17, [address]
== END 2017-07-08 17:08 | disposition home or self-care (01) | DRG 641 ==
LOC: EDUNIT# → F2N 13:14 → F3N 07-06 21:33
PROVIDERS: ADMIT Hospitalist; ATTEND Family Medicine
PROC: HZ2ZZZZ Detoxification Services for Substance Abuse Treatment (ICD-10-PCS; principal; 2017-07-03)
DX: E87.2 Acidosis (principal); E86.0 Dehydration; E83.52 Hypercalcemia; F10.251 Alcohol dependence with alcohol-induced psychotic disorder with hallucinations; F10.231 Alcohol dependence with withdrawal delirium; E87.6 Hypokalemia; E83.42 Hypomagnesemia; E83.39 Other disorders of phosphorus metabolism; D69.59 Other secondary thrombocytopenia; D75.89 Other specified diseases of blood and blood-forming organs; F17.210 Nicotine dependence, cigarettes, uncomplicated
CPT/HCPCS: 80305; 82607-90; 82693-90; 82947-QW; 84600-90; 92507-GN; 92523-GN; 96374; 97112-GP; 97161-GP; 97165-GO; G0480; J1650; J2060; J3411; J3475

== ENCOUNTER 2018-01-13 16:37 | Emergency (ER) | payer MEDICAID ==
[2018-01-13 16:47] VITALS: BP 167/101; PULSE 104; RESP 20; TEMP 98.4; O2SAT 97
[2018-01-13] MEDS ORDERED: chlordiazePOXIDE 25 MG CAP ONE (17:02)
[2018-01-13] MEDS ORDERED: chlordiazePOXIDE 25 MG CAP PO ONE (17:02)
[2018-01-13] MEDS ORDERED: CHLORDIAZEPOXIDE 25MG PREPK#6 BTL TAKEHOME ONE ×2 (17:02)
--- NOTE | 2018-01-13 17:08 | EDPHY ---
H & P Time Seen by Provider: 01/13/18 17:00 HPI/ROS: CHIEF COMPLAINT: Anxiety and tremor HISTORY OF PRESENT ILLNESS: Patient is long history of alcoholism was last sober between June of last year but has been drinking steadily since then. Increased pressure with recent new job. Presents wanting to quit drinking but feels shaky is last alcohol intake was at 3:00 p.m. Today. He has been trying to cut down for the last week but unsuccessful. He had nausea vomiting yesterday but none today. Denies abdominal pain or seizure. He has anxiety and history of depression but no suicidal ideation today, no delusions or paranoia or hallucinations today. Symptoms moderate. REVIEW OF SYSTEMS: Eye: no change in vision ENT: no sore throat Cardiac: no chest pain or syncope Pulmonary: no cough or SOB Abdomen: HPI Musculoskeletal: no back pain Skin: no rash Neuro: no headache Constitutional: no fever : no urinary symptoms A comprehensive 10 point review of systems is otherwise negative aside from elements mentioned in the history of present illness. PAST MEDICAL HISTORY: Includes history depression. Initial nursing notes say schizophrenia and bipolar but the patient denies Social history: Recent alcohol as above, tobacco smoker, denies drugs. General Appearance: Alert and conversant, cooperative. Eyes: No scleral icterus. ENT, Mouth: Normal mucous membranes. Respiratory: Normal respiratory effort, breath sounds equal, lungs are clear to auscultation. Cardiovascular: Regular rate and rhythm. Gastrointestinal: Abdomen is soft and non tender. Neurological: Alert, face symmetric, normal motor and sensory in extremities. Mildly tremulous. Normal speech and ambulatory. Skin: Warm and dry, no rashes. Musculoskeletal: No peripheral edema. Psychiatric: Not agitated. Emergency Department course/MDM: Librium 50 mg orally. Patient offer detox at [facility]. I informed the patient that I do not write prescription for outpatient benzodiazepines for home alcohol withdrawal treatment. Smoking Status: Current every day smoker Constitutional: Initial Vital Signs Temperature (C) 36.9 C 01/13/18 16:44 Heart Rate 104 H 01/13/18 16:44 Respiratory Rate 20 01/13/18 16:44 Blood Pressure 167/101 H 01/13/18 16:44 O2 Sat (%) 97 01/13/18 16:44 O2 Delivery Mode Room Air Allergies/Adverse Reactions: No Known Allergies Allergy (Verified 01/13/18 16:43) Home Medications: Medication Instructions Recorded NK [No Known Home Meds] 01/13/18 Medical Decision Making Differential Diagnosis: Differential included for tremor but not limited to alcohol withdrawal, medication withdrawal, anxiety, seizure disorder - Data Points Medications Given: Discontinued Medications Chlordiazepoxide (Librium 25 Mg Prepack#6) 1 btl TAKEHOME EDNOW ONE Stop: 01/13/18 17:03 Last Admin: 01/13/18 17:36 Dose: 1 btl Chlordiazepoxide HCl (Librium) 50 mg PO EDNOW ONE Stop: 01/13/18 17:03 Last Admin: 01/13/18 17:35 Dose: 50 mg Departure - Departure Disposition: Home, Routine, Self-Care Clinical Impression: Alcoholism Alcohol withdrawal Qualifiers: Complication of substance-induced condition: with perceptual disturbance Qualified Code(s): F10.232 - Alcohol dependence with withdrawal with perceptual disturbance Condition: Good Instructions: Alcohol Withdrawal (ED) Referrals: [facility] [Outside] - As per Instructions Amber Holly MD [Medical Doctor] - As per Instructions [facility],. [Clinic] - As per Instructions
== END 2018-01-13 17:44 | disposition home or self-care (01) ==
DX: F10.232 Alcohol dependence with withdrawal with perceptual disturbance (principal); F17.200 Nicotine dependence, unspecified, uncomplicated

== ENCOUNTER 2018-04-26 21:32 | Emergency (ER) | payer MEDICAID, OTHER ==
[2018-04-26] MEDS ORDERED: ACETAMINOPHEN 500 MG TAB PO ONE (22:11)
[2018-04-26] MEDS ORDERED: NS 1,000 ML IV ONE ×3 (22:11→22:20)
--- NOTE | 2018-04-26 22:16 | EDPHY ---
H & P Stated Complaint: c/o fever/urbina/sorethroat/malaise ongoing x 2 days, says worst urbina ever had Time Seen by Provider: 04/26/18 22:16 HPI/ROS: HPI CHIEF COMPLAINT: Fever, generalized malaise HISTORY OF PRESENT ILLNESS: This is otherwise healthy 32-year-old male, presents emergency room with generalized fatigue, and fever. Patient reports he has been sick for 24 hr. He has had chills and generalized weakness. He denies any chest pain or shortness of breath denies productive cough, denies stiff neck or vomiting or diarrhea. He decided come the emergency room tonight due to the malaise and fever. Upon arrival was noted he had a temperature 38.3 degrees. He does complain of a sore throat. Past Medical History: Denies medical history Past Surgical History: Denies surgical history Social History: Denies daily use drugs alcohol tobacco. Family History: Noncontributory ROS REVIEW OF SYSTEMS: A comprehensive 10 point review of systems is otherwise negative aside from elements mentioned in the history of present illness. Exam Constitutional triage nursing summary reviewed, vital signs reviewed, awake/ alert. Vital signs reviewed at triage. Eyes normal conjunctivae and sclera, EOMI, PERRLA. HENT posterior pharynx slight erythema no exudate, normal inspection, atraumatic, moist mucus membranes, no epistaxis, neck supple/ no meningismus, no raccoon eyes. Respiratory clear to auscultation bilaterally, normal breath sounds, no respiratory distress, no wheezing. Cardiovascular rate normal, regular rhythm, no murmur, no edema, distal pulses normal. Gastrointestinal soft, non-tender, no rebound, no guarding, normal bowel sounds, no distension, no pulsatile mass. Genitourinary no CVA tenderness. Musculoskeletal no midline vertebral tenderness, full range of motion, no calf swelling, no tenderness of extremities, no meningismus, good pulses, neurovascularly intact. Skin pink, warm, & dry, no rash, skin atraumatic. Neurologic no meningeal signs on exam, awake, alert and oriented x 3, AAOx3, moves all 4 extremities equally, motor intact, sensory intact, CN II-XII intact , normal cerebellar, normal vision, normal speech. Psychiatric normal mood/affect. Heme/Lymph/Immune no lymphadenopathy. Differential Diagnosis: Includes but is not limited to in a particular order viral pharyngitis, strep pharyngitis, bacterial pneumonia, viral syndrome, electrolyte disturbance, dehydration Medical Decision Making: Plan for this patient IV establishment with blood draw , IV fluid bolus, ibuprofen for fever and pain control, check electrolytes, check urinalysis, two view chest x-ray to rule out pneumonia, check rapid strep and mono. Re-evaluation: 0130: Patient re-evaluated this time is resting comfortably no acute distress and feels much better. His fever has resolved. His workup has been essentially unremarkable in the emergency room he has a chest x-ray that shows no evidence of pneumonia I urinalysis does not show any evidence of infection a CBC that is unremarkable appropriate electrolytes negative mono negative strep. Patient is eager to be discharged home is feeling much better. I recommend he stays well hydrated and rest he should alternate Tylenol Motrin for fever pain control. Additionally discussed return precautions with me understands return emergency room if develops high fever, vomiting or not feeling well. Most likely cause of fever is viral syndrome. Source: Patient - Medical/Surgical History Hx Asthma: No Hx Chronic Respiratory Disease: No Hx Diabetes: No Hx Cardiac Disease: No Hx Renal Disease: No Hx Cirrhosis: No Hx Alcoholism: Yes Hx HIV/AIDS: No Hx Splenectomy or Spleen Trauma: No Other PMH: drug and alcohol abuse, orif R ankle, orif R hand - Social History Smoking Status: Current every day smoker Constitutional: Initial Vital Signs Temperature (C) 38.3 C 04/26/18 21:39 Heart Rate 98 04/26/18 21:39 Respiratory Rate 16 04/26/18 21:39 Blood Pressure 105/68 04/26/18 21:39 O2 Sat (%) 96 04/26/18 21:39 O2 Delivery Mode Room Air Allergies/Adverse Reactions: No Known Allergies Allergy (Verified 04/26/18 21:44) Home Medications: Medication Instructions Recorded Ibuprofen 04/26/18 Medical Decision Making - Diagnostics Imaging Results: Imaging Impressions Chest X-Ray 04/26/18 22:20 Impression: Suspect mild airways disease with no superimposed pneumonia. - Data Points Laboratory Results: Laboratory Results 04/26/18 22:20 04/26/18 22:20 04/27/18 04/26/18 04/26/18 00:20 Unknown 22:36 WBC RBC Hgb Hct MCV MCH MCHC RDW Plt Count MPV Neut % (Auto) Lymph % (Auto) Wetzel % (Auto) Eos % (Auto) Baso % (Auto) Nucleat RBC Rel Count Absolute Neuts (auto) Absolute Lymphs (auto) Absolute Monos (auto) Absolute Eos (auto) Absolute Basos (auto) Absolute Nucleated RBC Immature Gran % Immature Gran # Sodium Potassium Chloride Carbon Dioxide Anion Gap BUN Creatinine Estimated GFR Glucose POC Lactic Acid Edis 0.5 mmol/L L mmol/L (0.7-2.1) Calcium Total Bilirubin Conjugated Bilirubin Unconjugated Bilirubin AST ALT Alkaline Phosphatase Total Protein Albumin Lipase Urine Color YELLOW Urine Appearance CLEAR Urine pH 5.0 (5.0-7.5) Ur Specific [place] 1.013 (1.002-1.030) Urine Protein NEGATIVE (NEGATIVE) Urine Ketones 1+ H (NEGATIVE) Urine Blood NEGATIVE (NEGATIVE) Urine Nitrate NEGATIVE (NEGATIVE) Urine Bilirubin NEGATIVE (NEGATIVE) Urine Urobilinogen NEGATIVE EU EU (0.2-1.0) Ur Leukocyte Esterase NEGATIVE (NEGATIVE) Urine Glucose NEGATIVE (NEGATIVE) Monoscreen Group A Strep Screen Group A Strep DNA Pending 04/26/18 04/26/18 04/26/18 22:20 22:20 22:20 WBC RBC Hgb Hct MCV MCH MCHC RDW Plt Count MPV Neut % (Auto) Lymph % (Auto) Wetzel % (Auto) Eos % (Auto) Baso % (Auto) Nucleat RBC Rel Count Absolute Neuts (auto) Absolute Lymphs (auto) Absolute Monos (auto) Absolute Eos (auto) Absolute Basos (auto) Absolute Nucleated RBC Immature Gran % Immature Gran # Sodium 137 mEq/L mEq/L (135-145) Potassium 4.0 mEq/L mEq/L (3.3-5.0) Chloride 102 mEq/L mEq/L (97-110) Carbon Dioxide 22 mEq/l mEq/l (22-31) Anion Gap 13 mEq/L mEq/L (8-16) BUN 8 mg/dL mg/dL (7-23) Creatinine 0.6 mg/dL L mg/dL (0.7-1.3) Estimated GFR > 60 Glucose 91 mg/dL mg/dL (70-100) POC Lactic Acid Edis Calcium 9.2 mg/dL mg/dL (8.5-10.4) Total Bilirubin 1.4 mg/dL mg/dL (0.1-1.4) Conjugated Bilirubin 0.3 mg/dL mg/dL (0.0-0.5) Unconjugated Bilirubin 1.1 mg/dL mg/dL (0.0-1.1) AST 18 IU/L IU/L (17-59) ALT 31 IU/L IU/L (21-72) Alkaline Phosphatase 51 IU/L IU/L (38-126) Total Protein 6.8 g/dL g/dL (6.3-8.2) Albumin 4.0 g/dL g/dL (3.5-5.0) Lipase 56 IU/L IU/L (23-300) Urine Color Urine Appearance Urine pH Ur Specific [place] Urine Protein Urine Ketones Urine Blood Urine Nitrate Urine Bilirubin Urine Urobilinogen Ur Leukocyte Esterase Urine Glucose Monoscreen NEGATIVE (NEGATIVE) Group A Strep Screen NEGATIVE (NEGATIVE) Group A Strep DNA 04/26/18 22:20 WBC 7.93 10^3/uL 10^3/uL (3.80-9.50) RBC 4.11 10^6/uL L 10^6/uL (4.40-6.38) Hgb 13.1 g/dL L g/dL (13.7-17.5) Hct 39.1 % L % (40.0-51.0) MCV 95.1 fL fL (81.5-99.8) MCH 31.9 pg pg (27.9-34.1) MCHC 33.5 g/dL g/dL (32.4-36.7) RDW 12.5 % % (11.5-15.2) Plt Count 217 10^3/uL 10^3/uL (150-400) MPV 9.9 fL fL (8.7-11.7) Neut % (Auto) 79.5 % H % (39.3-74.2) Lymph % (Auto) 10.2 % L % (15.0-45.0) Wetzel % (Auto) 9.7 % % (4.5-13.0) Eos % (Auto) 0.1 % L % (0.6-7.6) Baso % (Auto) 0.4 % % (0.3-1.7) Nucleat RBC Rel Count 0.0 % % (0.0-0.2) Absolute Neuts (auto) 6.30 10^3/uL 10^3/uL (1.70-6.50) Absolute Lymphs (auto) 0.81 10^3/uL L 10^3/uL (1.00-3.00) Absolute Monos (auto) 0.77 10^3/uL 10^3/uL (0.30-0.80) Absolute Eos (auto) 0.01 10^3/uL L 10^3/uL (0.03-0.40) Absolute Basos (auto) 0.03 10^3/uL 10^3/uL (0.02-0.10) Absolute Nucleated RBC 0.00 10^3/uL 10^3/uL (0-0.01) Immature Gran % 0.1 % % (0.0-1.1) Immature Gran # 0.01 10^3/uL 10^3/uL (0.00-0.10) Sodium Potassium Chloride Carbon Dioxide Anion Gap BUN Creatinine Estimated GFR Glucose POC Lactic Acid Edis Calcium Total Bilirubin Conjugated Bilirubin Unconjugated Bilirubin AST ALT Alkaline Phosphatase Total Protein Albumin Lipase Urine Color Urine Appearance Urine pH Ur Specific [place] Urine Protein Urine Ketones Urine Blood Urine Nitrate Urine Bilirubin Urine Urobilinogen Ur Leukocyte Esterase Urine Glucose Monoscreen Group A Strep Screen Group A Strep DNA Medications Given: Discontinued Medications Acetaminophen (Tylenol) 1,000 mg PO EDNOW ONE Stop: 04/26/18 22:12 Last Admin: 04/26/18 22:43 Dose: 1,000 mg Sodium Chloride (Ns) 1,000 mls @ 0 mls/hr IV ONCE ONE PRN Reason: Wide Open Stop: 04/26/18 22:12 Last Admin: 04/26/18 22:44 Dose: 1,000 mls Sodium Chloride (Ns) 1,000 mls @ 0 mls/hr IV EDNOW ONE; Wide Open PRN Reason: Protocol Stop: 04/26/18 22:21 Last Admin: 04/26/18 22:43 Dose: 1,000 mls Point of Care Test Results: Blood Gas/Lactic Acid-Venous 04/26/18 22:36 POC Lactic Acid Edis 0.5 mmol/L L mmol/L (0.7-2.1) Departure - Departure Disposition: Home, Routine, Self-Care Clinical Impression: Viral syndrome Fever Qualifiers: Fever type: unspecified Qualified Code(s): R50.9 - Fever, unspecified Condition: Good Instructions: Fever in Adults (ED), Dehydration (ED), Viral Syndrome (ED) Additional Instructions: 1. Please stay well-hydrated drink lots of fluids. 2. Alternate Tylenol Motrin for fever pain control. 3. Return emergency room if you have worsening symptoms includes high fever not feeling well.
[2018-04-26] MEDS ORDERED: ACETAMINOPHEN 500 MG TAB ONE (22:17)
[2018-04-26] MEDS ORDERED: IBUPROFEN 800 MG TAB PO ONE (22:21)
[2018-04-26 22:43] LABS: PLATELET COUNT 217 10^3/uL (150-400)
[2018-04-27 02:08] VITALS: BP 102/60
== END 2018-04-27 02:06 | disposition home or self-care (01) ==
DX: B34.9 Viral infection, unspecified (principal); E86.9 Volume depletion, unspecified; F17.200 Nicotine dependence, unspecified, uncomplicated
CPT/HCPCS: 83605-PO